=== PATIENT | female | born 1990 | race African-American/Black ===

== ENCOUNTER 2016-06-13 11:25 | Emergency (ER) | payer OTHER ==
[~2016-06-13] VITALS: Ht 160 cm; Wt 69.0 kg
[~2016-06-13 11:25] MED LIST: FLAGYL500 MG PO; IBUPROFEN 200200 M1 PO; IBUPROFEN 600600 M1 PO; NAPROSYN500 MG PO; NOHOMEMEDICATIONS; NORCO 5-325 TA1 EACH PO; PENICILLIN VK250 MG PO; PROAIR HFA8.5 GM IH; TESSALON200 MG PO; ZOFRAN ODT4 MG PO; ZPAK PO
[2016-06-13] MEDS ORDERED: TRINATE TABLET1 TAB PO (11:45)
[2016-06-13 12:30] VITALS: BP 113/64
== END 2016-06-13 12:30 | disposition short-term general hospital (02) ==
LOC: ER 11:25
DX: O26.893 Other specified pregnancy related conditions, third trimester (principal); R10.30 Lower abdominal pain, unspecified; O21.9 Vomiting of pregnancy, unspecified; F17.210 Nicotine dependence, cigarettes, uncomplicated